=== PATIENT | female | born 1990 | race African-American/Black ===

== ENCOUNTER 2017-09-17 08:22 | Outpatient (CLI) | payer OTHER ==
[~2017-09-17] VITALS: Ht 154.9 cm; Wt 98.2 kg
[2017-09-17 08:50] VITALS: BP 122/70
[2017-09-17] MEDS ORDERED: PRENATAL TABLE1 EAC3 PO (08:51)
[2017-09-17 22:43] LABS: CANDIDA DNA PROBE POSITIVE; GARDNERELLA DNA PROBE POSITIVE; TRICHOMONAS DNA PROBE NEGATIVE
== END 2017-09-17 09:50 | disposition home or self-care (01) ==
LOC: LDRP-OP 08:22 → 2WEST 08:23 → LDRP-OP 10-25 13:48
PROVIDERS: Advanced Practice Midwife
DX: O26.893 Other specified pregnancy related conditions, third trimester (principal); Z3A.38 38 weeks gestation of pregnancy
CPT/HCPCS: 59025; 87480; 87510; 87660; G0378

== ENCOUNTER 2017-09-30 07:50 | Outpatient (CLI) | payer OTHER ==
[~2017-09-30] VITALS: Ht 154.9 cm; Wt 97.9 kg
[~2017-09-30 07:50] MED LIST: PRENATAL TABLE1 EAC3 PO
[2017-09-30 08:02] VITALS: BP 132/77
[2017-09-30 10:05] VITALS: BP 131/62
[2017-10-01] MEDS ORDERED: PERCOCET 5/31 TABLET PO (20:59)
[2017-10-01] MEDS ORDERED: MOTRIN800 MG PO (20:59)
== END 2017-09-30 11:35 | disposition home or self-care (01) ==
LOC: LDRP-OP 07:50 → 2WEST 07:51 → LDRP-OP 10-25 10:02
DX: O47.1 False labor at or after 37 completed weeks of gestation (principal); Z3A.40 40 weeks gestation of pregnancy
CPT/HCPCS: 59025; G0378

== ENCOUNTER 2017-10-01 04:00 | Inpatient (IN) | payer OTHER ==
[~2017-10-01] VITALS: Ht 154.9 cm; Wt 97.9 kg
[2017-10-01] VITALS (32 sets, daily range): BP systolic 119–156; BP diastolic 63–92
[2017-10-01 05:15] LABS: BASOPHIL (%) 0.3 % (0-1); EOSINOPHIL (%) 0.8 % (0-5); EOSINOPHIL COUNT 0.1 K/uL (0-0.3); HEMATOCRIT 33.1 % (36.0-46.0); HEMOGLOBIN 10.7 G/DL (11.9-15.5); IMMATURE GRANULOCYTE (%) 0.4 % (0.0-0.7); LYMPHOCYTE (%) 19.8 % (15-42); LYMPHOCYTE COUNT 2.3 K/uL (1.0-2.8); MCH 27.5 PG (29.0-34.0); MCHC 32.3 G/DL (30.0-36.0); MCV 85.1 FL (83-99); MONOCYTE (%) 5.8 % (3-12); MONOCYTE COUNT 0.7 K/uL (0-0.8); NEUTROPHIL (%) 72.9 % (45-76); NEUTROPHIL COUNT 8.5 K/uL (1.8-6.4); PLATELET COUNT 161 K/uL (156-360); RBC DIS.WIDTH-SD 46.4 % (39-53); RED BLOOD COUNT 3.89 M/uL (3.80-5.20); WHITE BLOOD COUNT 11.7 K/uL (4.1-10.2)
[2017-10-01] MEDS ORDERED: PERCOCET 5/31 TABLET PO (20:59)
[2017-10-01] MEDS ORDERED: MOTRIN800 MG PO (20:59)
[2017-10-02 06:27] LABS: BASOPHIL (%) 0.1 % (0-1); EOSINOPHIL (%) 0 % (0-5); HEMATOCRIT 28.2 % (36.0-46.0); HEMOGLOBIN 9.1 G/DL (11.9-15.5); IMMATURE GRANULOCYTE (%) 0.6 % (0.0-0.7); LYMPHOCYTE (%) 4.8 % (15-42); MCH 27.7 PG (29.0-34.0); MCHC 32.3 G/DL (30.0-36.0); MCV 85.7 FL (83-99); MONOCYTE (%) 2.2 % (3-12); MONOCYTE COUNT 0.5 K/uL (0-0.8); NEUTROPHIL (%) 92.3 % (45-76); NEUTROPHIL COUNT 19.3 K/uL (1.8-6.4); PLATELET COUNT 137 K/uL (156-360); RED BLOOD COUNT 3.29 M/uL (3.80-5.20); WHITE BLOOD COUNT 20.9 K/uL (4.1-10.2)
[2017-10-02 07:20] VITALS: BP 114/65
[2017-10-02 10:30] VITALS: BP 111/64
[2017-10-02 15:00] VITALS: BP 116/59
[2017-10-02 18:59] VITALS: BP 123/67
[2017-10-02 23:05] VITALS: BP 139/79
[2017-10-03 02:57] VITALS: BP 133/77
[2017-10-03 02:58] VITALS: BP 133/77
[2017-10-03 07:30] VITALS: BP 121/73
[2017-10-03 15:03] VITALS: BP 130/77
[2017-10-03 23:09] VITALS: BP 134/71
[2017-10-04 06:45] VITALS: BP 129/75
[2017-10-04 22:47] VITALS: BP 138/75
== END 2017-10-05 17:26 | disposition home or self-care (01) | DRG 766 ==
LOC: LDRP-OP 04:00 → 2WEST 04:01 → LDRP-OP 10-25 11:55
PROVIDERS: Midwife; Obstetrics & Gynecology
PROC: 00HU33Z Insertion of Infusion Device into Spinal Canal, Percutaneous Approach (ICD-10-PCS; principal; 2017-10-01)
PROC: 3E0R3BZ Introduction of Anesthetic Agent into Spinal Canal, Percutaneous Approach (ICD-10-PCS; principal; 2017-10-01)
PROC: 10D00Z1 Extraction of Products of Conception, Low, Open Approach (ICD-10-PCS; principal; 2017-10-01)
DX: O62.0 Primary inadequate contractions (principal); O99.824 Streptococcus B carrier state complicating childbirth; Z3A.40 40 weeks gestation of pregnancy; Z37.0 Single live birth; O99.214 Obesity complicating childbirth; E66.9 Obesity, unspecified; Z68.34 Body mass index [BMI] 34.0-34.9, adult
CPT/HCPCS: 59025; 85025; 86850; 86900; 86901; C1755; G0378; J0595; J0690; J1100; J1885; J2175; J2274; J2405; J2540; J2590; J3010; J7120